=== PATIENT | male | born 1950 | race Caucasian/White ===

== ENCOUNTER 2017-05-19 16:07 | Emergency (ER) | payer OTHER ==
--- NOTE | 2017-05-19 16:28 | PDOC ---
History of Present Illness - General History Source: Patient (Patient heard pop from left foot when going up staircase. ) Exam Limitations: No Limitations - History of Present Illness Occurred: reports: other (Tuesday morning. ) Pain Location: reports: lower extremity (Left Foot. ) Modifying Factors: improves with: None Loss of Consciousness: no loss of consciousness Associated Symptoms (Fall): denies symptoms <Jair Rios - Last Filed: 05/19/17 16:29> <Deanna Walker - Last Filed: 05/19/17 17:51> - General Chief Complaint: Injury Stated Complaint: LEFT FOOT INJURY Time Seen by Provider: 05/19/17 16:09 Past History <Jair Rios - Last Filed: 05/19/17 16:29> - Past Medical History Anemia: No Asthma: No Cancer: No Cardiac Disorders: No CVA: No COPD: No CHF: No Dementia: No Diabetes: No GI Disorders: No Disorders: No HTN: Yes Hypercholesterolemia: No Liver Disease: No Seizures: No Thyroid Disease: No - Surgical History Orthopedic Surgery: Yes (BROKEN LEG 1978 LEFT) - Psycho/Social/Smoking Cessation Hx Anxiety: No Suicidal Ideation: No Smoking History: Never smoked Have you smoked in the past 12 months: No Hx Alcohol Use: No Substance Use Type: Alcohol Hx Substance Use Treatment: No <Deanna Walker - Last Filed: 05/19/17 17:51> - Past Medical History Allergies/Adverse Reactions: Allergies Allergy/AdvReac Type Severity Reaction Status Date / Time No Known Allergies Allergy Verified 02/14/14 15:38 Home Medications: Ambulatory Orders Enalapril Maleate [Vasotec -] 10 mg PO DAILY 01/30/14 Ibuprofen [Motrin -] 600 mg PO TID #21 tablet 05/19/17 Review of Systems - Review of Systems Able to Perform ROS?: Yes All Other Systems: Reviewed and Negative <Jair Rios - Last Filed: 05/19/17 16:29> *Physical Exam - Physical Exam Extremity: positive: Other (Achilles normal, Ankle Normal. Dorsal of left foot. Pain mainly on dorsal aspect. ) <Jair Rios - Last Filed: 05/19/17 16:29> *DC/Admit/Observation/Transfer - Attestations Scribe Attestion: 05/19/17 16:33 Documentation prepared by Jair Rios, acting as faculty i on call medical assistant for Deanna Walker MD. <Jair Rios - Last Filed: 05/19/17 16:29> - Discharge Dispostion Admit: No <Deanna Walker - Last Filed: 05/19/17 17:51> Diagnosis at time of Disposition: Fracture of 5th metatarsal Qualifiers: Encounter type: initial encounter Fracture type: closed Fracture alignment: nondisplaced Laterality: left Qualified Code(s): S92.355A - Nondisplaced fracture of fifth metatarsal bone, left foot, initial encounter for closed fracture - Discharge Dispostion Disposition: HOME Condition at time of disposition: Improved - Referrals Referrals: Ricardo Duran MD [Staff Physician] - - Patient Instructions Printed Discharge Instructions: DI for Foot Fracture - Post Discharge Activity Work/School Note: Back to Work
[2017-05-19 16:42] VITALS: BP 143/89; PULSE 89; TEMP 98.4; BMI 30.8
== END 2017-05-19 17:55 | disposition home or self-care (01) ==
LOC: FER 16:07
DX: S92.355A Nondisplaced fracture of fifth metatarsal bone, left foot, initial encounter for closed fracture (principal); W10.8XXA Fall (on) (from) other stairs and steps, initial encounter; Y93.89 Activity, other specified; Y92.9 Unspecified place or not applicable; I10 Essential (primary) hypertension
CPT/HCPCS: 73630-TC-LT; 99282-25